=== PATIENT | female | born 1980 | race Caucasian/White ===

== ENCOUNTER 2020-07-22 20:25 | Emergency (ER) | payer MEDICAID ==
[~2020-07-22] VITALS: Ht 149.9 cm; Wt 75.3 kg
[2020-07-22 20:33] VITALS: Ht 149.9 cm; Wt 75.3 kg
[2020-07-22 21:27] LABS: BASOPHIL % 0.3 % (0-2); PLATELET COUNT 253 x10^3mcL (130-400); RED CELL DISTRIBUTION WIDTH 13.3 % (11.5-14.5)
[2020-07-23 00:20] VITALS: BP 107/70
== END 2020-07-23 00:20 | disposition home or self-care (01) ==
LOC: ED 20:25
PROVIDERS: Emergency Medicine
DX: O20.0 Threatened abortion (principal); Z3A.12 12 weeks gestation of pregnancy; Z88.0 Allergy status to penicillin